=== PATIENT | female | born 1950 | race Caucasian/White ===

== ENCOUNTER 2023-07-17 15:42 | Observation (INO) | payer OTHER ==
[2023-07-17 15:51] VITALS: BMI 34.3
[2023-07-17 16:29] LABS: BASO % 0.5 % (0-2.0); EOS % 0.7 % (0-4.5); HEMATOCRIT 42.6 % (32.4-45.2); HEMOGLOBIN 14.2 GM/dL (10.7-15.3); LYMPH % 24.3 % (8-40); MCH 31.1 pg (25.7-33.7); MCHC 33.4 g/dl (32.0-36.0); MEAN CELL VOLUME 93.2 fl (80-96); MEAN PLT VOLUME 8.4 fl (7.5-11.1); MONO % 5.3 % (3.8-10.2); NEUT % 69.2 % (42.8-82.8); PLATELET COUNT 343 10^3/uL (134-434); RBC 4.57 M/mm3 (3.60-5.2); RDW 12.7 % (11.6-15.6); WHITE BLOOD COUNT 9.9 K/mm3 (4.0-10.0)
[2023-07-17] MEDS ORDERED: ACETAMINOPHEN INJECTION 100 ML IVPB ONE (16:35)
[2023-07-17] MEDS: ACETAMINOPHEN 1000 MG/100 ML BAG IVPB ONE (16:41)
[2023-07-17 16:49] LABS: POTASSIUM 3.7 mmol/L (3.5-5.1)
[2023-07-17 16:50] LABS: CALCIUM 9.6 mg/dL (8.5-10.1)
[2023-07-17 16:51] LABS: ALBUMIN 3.8 g/dl (3.4-5.0)
[2023-07-17 16:52] LABS: BLOOD UREA NITROGEN 15.9 mg/dL (7-18)
[2023-07-17 16:53] LABS: INR 0.83 (0.83-1.09); PROTHROMBIN TIME (PATIENT) 9.4 SEC (9.7-13.0)
[2023-07-17 16:54] LABS: CREATININE 1.1 mg/dL (0.55-1.3)
[2023-07-17 16:56] LABS: ACTIVATED PTT 30.2 SECONDS (25.2-36.5); TOT PROT 7.5 g/dl (6.4-8.2)
[2023-07-17 16:57] LABS: BILIRUBIN,TOTAL 0.6 mg/dL (0.2-1)
[2023-07-17] MEDS ORDERED: METHOCARBAMOL 500 MG TABLET ONE (17:02)
[2023-07-17] MEDS ORDERED: METOCLOPRAMIDE HCL INJECTION 10 MG/2 ML VIAL ONE (17:02)
[2023-07-17] MEDS: METOCLOPRAMIDE HCL INJECTION 10 MG/2 ML VIAL IVPUSH ONE (17:17)
[2023-07-17] MEDS: METHOCARBAMOL 750 MG TABLET PO ONE (17:17)
[2023-07-17] MEDS: SODIUM CHLORIDE 0.9% 500 ML INFUS.BAG IV ONE (17:17)
[2023-07-17] MEDS ORDERED: diazePAM CARPU-JECT 10 MG/2 ML DISP.SYRIN ONE (18:48)
[2023-07-17] MEDS ORDERED: KETOROLAC TROMETHAMINE 15 MG/ML VIAL ONE (18:49)
[2023-07-17] MEDS: diazePAM CARPU-JECT 10 MG/2 ML DISP.SYRIN IVPUSH ONE (18:57)
[2023-07-17] MEDS: KETOROLAC TROMETHAMINE 15 MG/ML VIAL IVPUSH ONE (18:57)
[2023-07-17] MEDS ORDERED: ATORVASTATIN CA 80 MG TABLET (FP) ONE (20:15)
[2023-07-17] MEDS ORDERED: ALBUTEROL SO4 HFA INHALER IH PRN (20:15)
[2023-07-17] MEDS: ATORVASTATIN CA 80 MG TABLET (FP) PO SCH (20:18)
[2023-07-17] MEDS ORDERED: ASPIRIN 325 MG ENTERIC COATED TABLET (FP) ONE (20:24)
[2023-07-17] MEDS: CLOPIDOGREL BISULFATE 300 MG TABLET PO ONE (20:30)
[2023-07-17] MEDS: ASPIRIN 325 MG ENTERIC COATED TABLET (FP) PO ONE (20:30)
[2023-07-17 21:50] LABS: EPI CELLS 27 /uL (0-25.1); HYALINE CASTS 2 /uL (0-3.1); PH,URINE 5.5 (5.0-8.0); URINE APPEARANCE CLOUDY; URINE BACTERIA 919 /uL (0-1359); URINE BILIRUBIN NEGATIVE (NEGATIVE); URINE COLOR YELLOW; URINE GLUCOSE (UA) NEGATIVE (NEGATIVE); URINE KETONE NEGATIVE (NEGATIVE); URINE LEUK ESTERASE 2+ (NEGATIVE); URINE NITRITE NEGATIVE (NEGATIVE); URINE PROTEIN NEGATIVE (NEGATIVE); URINE RBC 13 /uL (0-23.9); URINE UROBILINOGEN 0.2 mg/dL (0.2-1.0); URINE WBC 279 /uL (0-25.8)
[2023-07-17] MEDS: INSULIN ASPART SLIDING SCALE (NOVOLOG) 1 VIAL SQ SCH (22:04)
[2023-07-18] MEDS ORDERED: guaiFENesin/D-METHORPHAN HB 10 ML UNIT-DOSE CUPS PO PRN (00:16)
[2023-07-18] MEDS ORDERED: MELATONIN 5 MG TABLETS ONE (00:25)
[2023-07-18] MEDS: MELATONIN 5 MG TABLETS PO ONE (00:33)
[2023-07-18 08:00] LABS: BASO % 0.3 % (0-2.0); HEMATOCRIT 38.8 % (32.4-45.2); HEMOGLOBIN 13.2 GM/dL (10.7-15.3); LYMPH % 33.4 % (8-40); MCH 31.6 pg (25.7-33.7); MCHC 33.9 g/dl (32.0-36.0); MEAN CELL VOLUME 93.2 fl (80-96); MEAN PLT VOLUME 8.7 fl (7.5-11.1); MONO % 6.8 % (3.8-10.2); NEUT % 58.5 % (42.8-82.8); PLATELET COUNT 300 10^3/uL (134-434); RBC 4.17 M/mm3 (3.60-5.2)
[2023-07-18 08:18] LABS: CALCIUM 9.3 mg/dL (8.5-10.1)
[2023-07-18 08:20] LABS: ALBUMIN 3.3 g/dl (3.4-5.0); BLOOD UREA NITROGEN 14.6 mg/dL (7-18)
[2023-07-18 08:23] LABS: PHOSPHOROUS 4.5 mg/dL (2.5-4.9); TOT PROT 6.3 g/dl (6.4-8.2)
[2023-07-18 08:24] LABS: BILIRUBIN,TOTAL 0.9 mg/dL (0.2-1)
[2023-07-18] MEDS ORDERED: HYDROCHLOROTHIAZIDE 25 MG TABLET (FP) PO SCH (10:00)
[2023-07-18] MEDS ORDERED: ASPIRIN COATED 81 MG TABLET.EC PO SCH (10:00)
[2023-07-18] MEDS ORDERED: LOSARTAN POTASSIUM 50 MG TABLET PO SCH (10:00)
[2023-07-18 10:47] VITALS: RESP 18
[2023-07-18] MEDS: CLOPIDOGREL BISULFATE 75 MG TABLET (FP) PO SCH (10:55)
[2023-07-18] MEDS: PANTOPRAZOLE 40 MG TABLET PO SCH (10:55)
[2023-07-18] MEDS: ENOXAPARIN NA (PORCINE) 40 MG/0.4 ML DISP.SYRIN SQ SCH (10:55)
[2023-07-18] MEDS: ASPIRIN COATED 81 MG TABLET.EC PO SCH (10:55)
[2023-07-18 11:55] LABS: N-TERMINAL BNP 9.9 pg/ml (5-125)
[2023-07-18 18:58] VITALS: BP 147/83; PULSE 77; TEMP 99
== END 2023-07-18 18:57 | disposition home or self-care (01) ==
LOC: JER 15:42 → J4W 19:16
PROVIDERS: ADMIT Internal Medicine; ATTEND Internal Medicine
PROC: 3E033NZ Introduction of Analgesics, Hypnotics, Sedatives into Peripheral Vein, Percutaneous Approach (ICD-10-PCS; principal; 2023-07-17)
PROC: 3E023GC Introduction of Other Therapeutic Substance into Muscle, Percutaneous Approach (ICD-10-PCS; 2023-07-17)
PROC: 3E0333Z Introduction of Anti-inflammatory into Peripheral Vein, Percutaneous Approach (ICD-10-PCS; 2023-07-17)
PROC: 3E0337Z Introduction of Electrolytic and Water Balance Substance into Peripheral Vein, Percutaneous Approach (ICD-10-PCS; 2023-07-17)
DX: G45.9 Transient cerebral ischemic attack, unspecified (principal); E11.9 Type 2 diabetes mellitus without complications; I10 Essential (primary) hypertension; M62.81 Muscle weakness (generalized); E78.5 Hyperlipidemia, unspecified; J45.909 Unspecified asthma, uncomplicated; K21.9 Gastro-esophageal reflux disease without esophagitis; Z90.49 Acquired absence of other specified parts of digestive tract; Z90.79 Acquired absence of other genital organ(s)
CPT/HCPCS: 36415; 70450-TC; 70551-TC; 71046-TC-FY; 80053; 80061; 81003; 82550; 82962; 83036; 83735; 83880; 84100; 84436; 84439; 84443; 84484; 85025; 85610; 85730; 86780; 86850; 86900; 86901; 93005; 93010; 93306-TC; 93880-TC; 96372; 96374; 96375; 97116-GP; 97161-GP; 99285-25; G0378; J0131